=== PATIENT | male | born 1950 | race Caucasian/White ===

== ENCOUNTER 2018-11-18 07:33 | Outpatient (CLI) | payer MEDICARE, OTHER ==
--- NOTE | 2018-11-18 09:35 | MRI ---
MRI BRAIN WITHOUT CONTRAST: HISTORY: Memory loss FINDINGS: There is ventriculo sulcal prominence. No restricted diffusion is seen. The basilar cisterns are kaba nt. No evidence of acute infarct, hemorrhage, midline shift or abnormal extra-axial fluid collections is seen. There is mucosal disease in the paranasal sinuses. IMPRESSION: No evidence of acute intracranial process.
== END 2018-11-18 07:34 | disposition home or self-care (01) ==
LOC: SCSMRI 07:33
PROVIDERS: ATTEND Family Medicine
DX: R41.3 Other amnesia (principal)
CPT/HCPCS: 70551